=== PATIENT | male | born 1940 | race Caucasian/White ===

== ENCOUNTER → 2019-11-20 13:06 | Outpatient (BNVA) | payer OTHER, SELFPAY | PROVIDERS: Family Provider Family Medicine; PCP Specialist; Referring Provider Specialist; Visit Provider Specialist | DX: M48.062 Spinal stenosis, lumbar region with neurogenic claudication (principal); G62.9 Polyneuropathy, unspecified | CPT/HCPCS: 99204 ==

== ENCOUNTER 2019-12-06 09:07 | Outpatient (CLI) | payer OTHER, SELFPAY ==
[2019-12-06 10:33] LABS: Vitamin B12 858 pg/mL (232-1245)
[2019-12-06 10:39] LABS: Folate Level > 20.0 ng/mL (4.5-32.2)
--- NOTE | 2019-12-06 11:00 | MR_ITS ---
WS: [id number] MRI LUMBAR SPINE NONCONTRAST TECHNIQUE: Sagittal T1, T2 and STIR imaging. Axial T1 and T2 imaging. CLINICAL INFORMATION: R29.898 Other symptoms and signs involving the musculoske... COMPARISON: None. FINDINGS: Lumbar scoliosis convex left. No acute compression fractures. Multilevel disc bulging throughout the lumbar spine. L1-L2: Mild disc bulging and osteophytic ridging. Slight narrowing of the left subarticular recess. M ild facet arthropathy. Mild left foraminal narrowing. L2-L3: Mild disc bulging and osteophytic ridging. Mild central canal stenosis and impingement portillo ing L3 nerve roots bilaterally. Moderate facet arthropathy. Mild left greater than right foraminal na rrowing. L3-L4: Disc osteophyte complex with endplate ridging. Impingement traversing right L4 nerve root and subarticular recess. Moderate right foraminal narrowing. Left foramen is patent. Mild to moderate fac et arthropathy. L4-L5: Disc osteophyte complex with endplate ridging. Impingement on the traversing L5 nerve roots bi laterally in the subarticular recess. Mild right and no significant left foraminal narrowing. Moderat e facet arthropathy. L5-S1: Disc osteophyte complex with endplate ridging. Mild central canal stenosis. Impingement roderick sing left S1 nerve root. Moderate facet arthropathy. Mild bilateral foraminal narrowing left greater than right. Small bilateral renal cysts. Mild central canal stenosis in the cervical spine. MR/MR lumbar spine wo con* [id number] IMPRESSION: 1. Mild lumbar curve. No acute compression. No high-grade central canal stenos is. 2. Mild central canal stenosis L2-3 due to disc osteophyte complex. 3. Impingement on the subarticular recess at multiple levels described above w orse at right L3-L4, bilateral L4-5, and left L5-S1. 4. Mild to moderate bony foraminal narrowing worse at left L1-2, right L2-3, r ight L3-4, right L4-5 and left L5-S1.
--- NOTE | 2019-12-06 11:45 | MR_ITS ---
WS: [id number] MRI HEAD WITHOUT CONTRAST TECHNIQUE: Sagittal T1, T2 axial, T2 axial FLAIR, axial and coronal T1 images, axial susceptibility w eighted imaging, axial diffusion weighted images, and coronal T2 images were obtained. CLINICAL INFORMATION: R53.1 Weakness COMPARISON: None. FINDINGS: No evidence of restricted diffusion to suggest acute ischemia. Ventricular system and basal cisterns are patent. Mild small vessel changes. Moderate parenchymal volume loss. Parenchymal volume loss wors e in the posterior parietal and temporal lobes. Normal vascular flow voids at the skull base. 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 Paranasal sinuses and mastoid air cells are well aerated. Normal optic chiasm and pituitary infundibu lum. 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 MR/MR head wo con* [id number] IMPRESSION: 1. No evidence of restricted diffusion to suggest acute ischemia. 2. Mild small vessel changes with moderate parenchymal volume loss worse in th e temporal and posterior parietal lobes. 3. Moderate symmetric atrophy involving the temporal lobes and hippocampal for mations. 4. Normal optic chiasm and pituitary infundibulum. 5. No hemosiderin on susceptibly weighted images.
[2019-12-07 12:19] LABS: PROTEIN, TOTAL 6.5 g/dL (6.1-8.1)
[2019-12-07 15:11] LABS: ALPHA 1 GLOBULIN 0.3 g/dL (0.2-0.3); ALPHA 2 GLOBULIN 0.8 g/dL (0.5-0.9); BETA 1 GLOBULIN 0.4 g/dL (0.4-0.6); BETA 2 GLOBULIN 0.3 g/dL (0.2-0.5); GAMMA GLOBULIN 0.8 g/dL (0.8-1.7)
== END 2019-12-06 09:08 | disposition home or self-care (01) ==
LOC: RADSHAW 09:15
PROVIDERS: Visit Provider Specialist
DX: R20.0 Anesthesia of skin (principal); R29.898 Other symptoms and signs involving the musculoskeletal system; R53.1 Weakness; G31.9 Degenerative disease of nervous system, unspecified; M48.061 Spinal stenosis, lumbar region without neurogenic claudication; M25.78 Osteophyte, vertebrae
CPT/HCPCS: 70551; 72148; 82607; 82746; 84155; 84165; 95909

== ENCOUNTER → 2020-01-11 11:21 | Outpatient (BNVA) | payer OTHER, SELFPAY | PROVIDERS: Visit Provider Specialist | DX: G24.01 Drug induced subacute dyskinesia (principal); G62.9 Polyneuropathy, unspecified | CPT/HCPCS: 99205 ==

== ENCOUNTER → 2020-04-15 14:02 | Outpatient (BNVA) | payer OTHER, SELFPAY | PROVIDERS: Visit Provider Specialist | DX: G62.9 Polyneuropathy, unspecified (principal); Z87.891 Personal history of nicotine dependence | CPT/HCPCS: 99213 ==